=== PATIENT | female | born 1985 | race Two or more races ===

== ENCOUNTER 2024-02-16 17:27 | Emergency (ER) | payer SELFPAY ==
[~2024-02-16] VITALS: Ht 165.1 cm; Wt 73.0 kg
[2024-02-16 17:34] VITALS: O2SAT 100
[2024-02-16 17:54] VITALS: BP 132/74; PULSE 102; RESP 16; TEMP 36.66960; O2SAT 100
== END 2024-02-16 17:55 | disposition home or self-care (01) ==
LOC: ER 17:27
DX: F10.129 Alcohol abuse with intoxication, unspecified (principal); Y90.9 Presence of alcohol in blood, level not specified
CPT/HCPCS: 99283